=== PATIENT | female | born 1990 | race Caucasian/White ===

== ENCOUNTER 2017-08-07 14:31 | Emergency (ER) | payer OTHER, MEDICAID ==
[~2017-08-07] VITALS: Ht 175.3 cm; Wt 108.9 kg
[~2017-08-07 14:31] MED LIST: ACETAMINOPHEN-1 EAC1 PO; AMOXICILLIN 50500 MG PO; AZITHROMYCIN 2250 MG PO; BACTRIM DS TAB1 EACH PO; BENADRYL25 MG PO; BIRTH CONTROL; CIPRO500 MG PO; CLEOCIN HCL300 MG PO; DICLOFENAC SOD50 M1 PO; DIPHENHIST50 MG PO; EPIPEN 2-P0.3 MG/0.3 IM; FLEXERIL; FLEXERIL PO; HEARTBURN RELIE75 M1 PO; HYDROCODON-ACE1 EAC7 PO; HYDROCODONE-AP1 EAC6 PO; HYDROXYZINE HCL25 M1 PO; IBUPROFEN 800800 M1 PO; IBUPROFEN 800800 MG PO; KEFLEX500 MG PO; LOPRESSOR25 PO; LOPRESSOR50 PO; NOHOMEMEDICATIONS; NORCO 5-325 TA1 EACH PO; ONE-A-DAY WOMENS; PEPCID20 MG PO; PERCOCET 5-3251 EACH PO; PHENERGAN 25 MG25 M1 PO; PREDNISONE 20 M20 M1 PO; PREDNISONE 20 M20 MG PO; PREDNISONE50 MG PO; PRILOSEC40 MG PO; PROMETHAZINE-C120 ML PO; PROVENTIL HFA6.7 G1 INH; ROBAXIN 750 MG750 M1 PO; TOPROL XL25 MG PO; TRAMADOL 50 MG50 MG PO; ULTRACET TABLE1 EACH PO; ULTRAM 50MG TAB50 MG PO; VENTOLIN HFA 1818 GM INH; VICODIN 5-5001 EACH PO; VISTARIL 25 MG25 M1; VISTARIL50 MG PO; ZOFRAN ODT4 MG PO; ZOFRAN4 MG PO; ZPAK PO
[2017-08-07] MEDS ORDERED: TRAMADOL 50 MG50 MG PO (15:39)
[2017-08-07 16:11] VITALS: BP 124/69
== END 2017-08-07 16:12 | disposition home or self-care (01) ==
LOC: M.ERS 14:31
DX: S93.492A Sprain of other ligament of left ankle, initial encounter (principal); J45.909 Unspecified asthma, uncomplicated; G89.29 Other chronic pain; M54.5 Low back pain; F17.210 Nicotine dependence, cigarettes, uncomplicated; Z91.013 Allergy to seafood; Z91.041 Radiographic dye allergy status; W17.2XXA Fall into hole, initial encounter; Y93.89 Activity, other specified; Y92.89 Other specified places as the place of occurrence of the external cause; Y99.8 Other external cause status

== ENCOUNTER 2017-11-03 16:57 | Emergency (ER) | payer OTHER, MEDICAID ==
[~2017-11-03] VITALS: Ht 175.3 cm; Wt 104.3 kg
[2017-11-03] MEDS ORDERED: PROZAC20 MG PO (17:04)
[2017-11-03 17:45] LABS: ABSOLUTE EOSINOPHILS 0.3 thou/uL (0.0-0.7); ABSOLUTE LYMPHOCYTES 2.2 thou/uL (0.8-5.3); ABSOLUTE MONOCYTES 0.6 thou/uL (0.0-1.2); ABSOLUTE NEUTROPHILS 3.8 thou/uL (1.6-8.1); BASOPHILS 0.5 %; EOSINOPHILS 4.5 %; HEMATOCRIT 42.4 % (37.0-47.0); HEMOGLOBIN 14.4 gm/dL (12.0-15.0); MCH 30.4 pg (26.0-34.0); MCV 89.6 fL (80.0-100.0); MONOCYTES 8.5 %; MPV 8.8 fl. (7.2-11.1); NUCLEATED RBCS 0 /100WBC; PLATELET COUNT* 201 thou/uL (150-400); POLYS 54.5 %; RBC 4.73 mil/uL (4.20-5.00); RDW-CV 13.1 % (10.5-14.5)
[2017-11-03 17:54] LABS: CALCIUM 8.9 mg/dL (8.5-10.1); CREATININE 0.8 mg/dL (0.6-1.3)
[2017-11-03 17:59] LABS: ALBUMIN 3.6 g/dL (3.4-5.0); TOTAL BILIRUBIN 0.3 mg/dL (<0.1-1.0); TOTAL PROTEIN 6.8 g/dL (6.4-8.2)
[2017-11-03 18:28] LABS: URINE BILIRUBIN NEGATIVE (Negative); URINE BLOOD 3+ (Negative); URINE CLARITY SL CLOUDY; URINE COLOR RED; URINE GLUCOSE-RANDOM NEGATIVE (Negative); URINE KETONES NEGATIVE (Negative); URINE LEUKOCYTES 1+ (Negative); URINE NITRITE NEGATIVE (Negative); URINE PROTEIN 1+ (Negative); URINE SPECIFIC GRAVITY 1.025 (1.005-1.030); URINE UROBILINOGEN 0.2 E.U./dl (0.2-1.0)
[2017-11-03 18:30] LABS: SQUAMOUS 4-10 Moderate /LPF (0-3)
[2017-11-03 18:31] LABS: URINE WBC 0-5 Rare /HPF (0-5)
[2017-11-03 18:32] LABS: BACTERIA 1-9 Few /HPF (None Seen); CASTS None Seen /LPF (None Seen); CRYSTALS None Seen /LPF (None Seen); MUCUS 4-6 Moderate strn/LPF (None Seen)
[2017-11-03] MEDS ORDERED: ONDANSETRON HCL4 M2 PO (18:49)
[2017-11-03] MEDS ORDERED: TRAMADOL 50 MG50 MG PO (18:49)
[2017-11-03] MEDS ORDERED: IBUPROFEN 800800 M1 PO (18:49)
[2017-11-03] MEDS ORDERED: KEFLEX500 M1 PO (19:01)
[2017-11-03 19:07] VITALS: BP 112/67
== END 2017-11-03 19:08 | disposition home or self-care (01) ==
LOC: M.ERS 16:57
PROVIDERS: Nurse Practitioner Family
DX: K52.9 Noninfective gastroenteritis and colitis, unspecified (principal); N83.201 Unspecified ovarian cyst, right side; N39.0 Urinary tract infection, site not specified; J45.909 Unspecified asthma, uncomplicated; G89.29 Other chronic pain; M54.9 Dorsalgia, unspecified; F17.210 Nicotine dependence, cigarettes, uncomplicated; Z91.013 Allergy to seafood; Z91.041 Radiographic dye allergy status

== ENCOUNTER 2017-12-10 02:08 | Emergency (ER) | payer OTHER, MEDICAID ==
[~2017-12-10] VITALS: Ht 175.3 cm; Wt 103.4 kg
[~2017-12-10 02:08] MED LIST changes: +KEFLEX500 M1 PO; +ONDANSETRON HCL4 M2 PO; +PROZAC20 MG PO
[2017-12-10] MEDS ORDERED: TOPAMAX50 MG PO (02:16)
[2017-12-10] MEDS ORDERED: ATIVAN1 MG PO (02:17)
[2017-12-10] MEDS ORDERED: SEROQUEL 100 M100 M1 PO (02:18)
[2017-12-10 02:40] LABS: ABSOLUTE BASOPHILS 0.1 thou/uL (0.0-0.2); ABSOLUTE EOSINOPHILS 0.2 thou/uL (0.0-0.7); ABSOLUTE LYMPHOCYTES 3.1 thou/uL (0.8-5.3); ABSOLUTE MONOCYTES 0.9 thou/uL (0.0-1.2); BASOPHILS 0.9 %; EOSINOPHILS 2.9 %; HEMATOCRIT 42.6 % (37.0-47.0); HEMOGLOBIN 14.6 gm/dL (12.0-15.0); LYMPHOCYTES 37.1 %; MCH 30.3 pg (26.0-34.0); MCHC 34.2 g/dL (28.0-37.0); MCV 88.7 fL (80.0-100.0); MONOCYTES 10.4 %; MPV 9.7 fl. (7.2-11.1); NUCLEATED RBCS 0 /100WBC; PLATELET COUNT* 178 thou/uL (150-400); POLYS 48.7 %; RDW-CV 12.8 % (10.5-14.5); WBC 8.3 thou/uL (4.0-11.0)
[2017-12-10 02:45] LABS: CALCIUM 9.1 mg/dL (8.5-10.1); CREATININE 0.8 mg/dL (0.6-1.3); POTASSIUM 4.2 mmol/L (3.5-5.1)
[2017-12-10 02:49] LABS: ALBUMIN 3.4 g/dL (3.4-5.0); TOTAL BILIRUBIN 0.6 mg/dL (<0.1-1.0); TOTAL PROTEIN 7.3 g/dL (6.4-8.2)
[2017-12-10 03:25] LABS: URINE BLOOD 3+ (Negative); URINE CLARITY SL CLOUDY; URINE COLOR YELLOW; URINE GLUCOSE-RANDOM NEGATIVE (Negative); URINE KETONES NEGATIVE (Negative); URINE LEUKOCYTES-REFLEX 1+ (Negative); URINE NITRITE-REFLEX NEGATIVE (Negative); URINE PROTEIN 1+ (Negative); URINE SPECIFIC GRAVITY >= 1.030 (1.005-1.030)
[2017-12-10 03:28] LABS: URINE BILIRUBIN 1+ (Negative)
[2017-12-10 03:33] LABS: AMP/METHAMP Negative (Negative); BARBITURATES POSITIVE (Negative); BENZODIAZEPINES Negative (Negative); COCAINE Negative (Negative); METHADONE Negative (Negative); OPIATES Negative (Negative); PCP Negative (Negative); THC Negative (Negative)
[2017-12-10 03:48] LABS: SQUAMOUS >10 Many /LPF (0-3)
[2017-12-10 03:49] LABS: CASTS None Seen /LPF (None Seen)
[2017-12-10 03:50] LABS: BACTERIA-REFLEX >30 Many /HPF (None Seen); CRYSTALS None Seen /LPF (None Seen); URINE RBC >20 Many /HPF (0-2)
[2017-12-10 03:51] LABS: MUCUS >6 Heavy strn/LPF (None Seen)
[2017-12-10] MEDS ORDERED: DOXYCYCLINE 10100 MG PO (04:27)
[2017-12-10] MEDS ORDERED: ACETAMINOPHEN-1 EAC1 PO (04:27)
[2017-12-10 06:26] VITALS: BP 101/57
--- NOTE | 2017-12-10 10:03 | EKG ---
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1990 Requested By: Rosalina Zayas Order Number: [id number] MD: Elias Stern Measurements Intervals [place] Rate: 89 P: 30 CT: 145 QRS: 14 QRSD: 102 T: 251 QT: 372 QTc: 453 Interpretive Statements Sinus rhythm RSR' in V1 or V2, probably normal variant Abnormal T, consider ischemia, diffuse leads Baseline wander in lead(s) I,II,aVR Compared to ECG 10/26/2016 22:15:12 Possible ischemia now present T-wave abnormality still present Electronically Signed On 12-10-2017 10:03:41 CDT by Elias Stern [email or web address] <ELECTRONICALLY SIGNED> By: Elias Stern MD, [facility] 12/10/17 1003 Elias Stern MD, [facility] /EPI
== END 2017-12-10 06:26 | disposition home or self-care (01) ==
LOC: M.ERS 02:08
PROVIDERS: Emergency Medicine
DX: R56.9 Unspecified convulsions (principal); N39.0 Urinary tract infection, site not specified; J45.909 Unspecified asthma, uncomplicated; M54.5 Low back pain; G89.29 Other chronic pain; Z91.041 Radiographic dye allergy status; Z91.013 Allergy to seafood

== ENCOUNTER 2018-02-04 13:57 | Emergency (ER) | payer OTHER, MEDICAID ==
[~2018-02-04] VITALS: Ht 175.3 cm; Wt 97.5 kg
[~2018-02-04 13:57] MED LIST changes: +ATIVAN1 MG PO; +DOXYCYCLINE 10100 MG PO; +SEROQUEL 100 M100 M1 PO; +TOPAMAX50 MG PO
[2018-02-04] MEDS ORDERED: DEPAKOTE 250MG250 M1 PO (14:06)
[2018-02-04] MEDS ORDERED: LEXAPRO 10 MG T10 M2 PO (14:06)
[2018-02-04] MEDS ORDERED: IBUPROFEN 800800 M1 PO (15:21)
[2018-02-04] MEDS ORDERED: NORCO 5-325 TA1 EACH PO (15:21)
[2018-02-04 15:52] VITALS: BP 110/68
== END 2018-02-04 15:55 | disposition home or self-care (01) ==
LOC: M.ERS 13:57
DX: M79.671 Pain in right foot (principal); M25.571 Pain in right ankle and joints of right foot; J45.909 Unspecified asthma, uncomplicated; G89.29 Other chronic pain; M54.5 Low back pain; F17.210 Nicotine dependence, cigarettes, uncomplicated; Z91.041 Radiographic dye allergy status; Z91.013 Allergy to seafood

== ENCOUNTER 2018-03-20 21:39 | Emergency (ER) | payer OTHER, MEDICAID ==
[~2018-03-20] VITALS: Ht 175.3 cm; Wt 99.8 kg
[~2018-03-20 21:39] MED LIST changes: +DEPAKOTE 250MG250 M1 PO; +LEXAPRO 10 MG T10 M2 PO
[2018-03-20] MEDS ORDERED: NORCO 5-325 TA1 EACH PO (22:37)
[2018-03-20 23:03] VITALS: BP 93/50
== END 2018-03-20 23:04 | disposition home or self-care (01) ==
LOC: M.ERS 21:39
DX: S93.491A Sprain of other ligament of right ankle, initial encounter (principal); J45.909 Unspecified asthma, uncomplicated; G89.29 Other chronic pain; M54.5 Low back pain; F17.210 Nicotine dependence, cigarettes, uncomplicated; Z98.890 Other specified postprocedural states; Z91.041 Radiographic dye allergy status; Z91.013 Allergy to seafood; X50.1XXA Overexertion from prolonged static or awkward postures, initial encounter; Y93.89 Activity, other specified; Y92.89 Other specified places as the place of occurrence of the external cause; Y99.8 Other external cause status

== ENCOUNTER 2018-04-28 20:06 | Emergency (ER) | payer OTHER, MEDICAID ==
[~2018-04-28] VITALS: Ht 175.3 cm; Wt 103.0 kg
[2018-04-28] MEDS ORDERED: NORCO 7.5-3251 EACH PO (21:17)
[2018-04-28] MEDS ORDERED: NORCO 5-325 TA1 EACH PO (22:09)
[2018-04-28] MEDS ORDERED: NABUMETONE 750750 M1 PO (22:09)
[2018-04-28] MEDS ORDERED: WHEELCHAIR1 EACH MC (22:11)
[2018-04-28 22:38] VITALS: BP 120/87
== END 2018-04-28 22:40 | disposition home or self-care (01) ==
LOC: M.ERS 20:06
DX: S93.401A Sprain of unspecified ligament of right ankle, initial encounter (principal); S92.002A Unspecified fracture of left calcaneus, initial encounter for closed fracture; W01.0XXA Fall on same level from slipping, tripping and stumbling without subsequent striking against object, initial encounter; Y93.89 Activity, other specified; Y92.89 Other specified places as the place of occurrence of the external cause; Y99.8 Other external cause status

== ENCOUNTER 2018-09-14 18:18 | Emergency (ER) | payer OTHER ==
[~2018-09-14] VITALS: Ht 175.3 cm; Wt 114.8 kg
[~2018-09-14 18:18] MED LIST changes: +NABUMETONE 750750 M1 PO; +NORCO 7.5-3251 EACH PO; +WHEELCHAIR1 EACH MC
[2018-09-14] MEDS ORDERED: NORCO 5-325 TA1 EACH PO (19:11)
[2018-09-14] MEDS ORDERED: IBUPROFEN 800800 MG PO (19:14)
[2018-09-14 19:40] VITALS: BP 108/75
== END 2018-09-14 19:41 | disposition home or self-care (01) ==
LOC: M.ERS 18:18
DX: S93.491A Sprain of other ligament of right ankle, initial encounter (principal); J45.909 Unspecified asthma, uncomplicated; G89.29 Other chronic pain; M54.5 Low back pain; F17.210 Nicotine dependence, cigarettes, uncomplicated; Z98.890 Other specified postprocedural states; Z91.041 Radiographic dye allergy status; Z91.013 Allergy to seafood; X50.1XXA Overexertion from prolonged static or awkward postures, initial encounter; Y93.89 Activity, other specified; Y92.89 Other specified places as the place of occurrence of the external cause; Y99.8 Other external cause status

== ENCOUNTER 2018-10-03 12:00 | Emergency (ER) | payer OTHER ==
[~2018-10-03] VITALS: Ht 175.3 cm; Wt 108.9 kg
[2018-10-03] MEDS ORDERED: PRAZOSIN 1 MG CA1 M1 PO (12:15)
[2018-10-03] MEDS ORDERED: MIRTAZAPINE7.5 MG PO (12:16)
[2018-10-03] MEDS ORDERED: CELEXA20 MG PO (12:16)
[2018-10-03 13:44] LABS: ABSOLUTE EOSINOPHILS 0.2 thou/uL (0.0-0.7); ABSOLUTE LYMPHOCYTES 2.1 thou/uL (0.8-5.3); ABSOLUTE MONOCYTES 0.3 thou/uL (0.0-1.2); ABSOLUTE NEUTROPHILS 3.3 thou/uL (1.6-8.1); BASOPHILS 0.6 %; EOSINOPHILS 2.7 %; HEMATOCRIT 43.3 % (37.0-47.0); HEMOGLOBIN 14.7 gm/dL (12.0-15.0); LYMPHOCYTES 34.8 %; MCH 29.8 pg (26.0-34.0); MCV 87.7 fL (80.0-100.0); MONOCYTES 5.9 %; NUCLEATED RBCS 0 /100WBC; PLATELET COUNT* 211 thou/uL (150-400); RBC 4.93 mil/uL (4.20-5.00); RDW-CV 12.9 % (10.5-14.5); WBC 5.9 thou/uL (4.0-11.0)
[2018-10-03 13:53] LABS: ALBUMIN 3.7 g/dL (3.4-5.0); CALCIUM 9.1 mg/dL (8.5-10.1); CREATININE 0.9 mg/dL (0.6-1.3); POTASSIUM 3.9 mmol/L (3.5-5.1); TOTAL BILIRUBIN 0.2 mg/dL (<0.1-1.0); TOTAL PROTEIN 7.4 g/dL (6.4-8.2)
[2018-10-03] MEDS ORDERED: MIRALAX17 GM PO (14:23)
[2018-10-03] MEDS ORDERED: ANUSOL-HC25 MG RECTAL (14:23)
[2018-10-03 14:48] VITALS: BP 137/77
== END 2018-10-03 14:49 | disposition home or self-care (01) ==
LOC: M.ERS 12:00
PROVIDERS: Nurse Practitioner Psychiatric/Mental Health
DX: K64.4 Residual hemorrhoidal skin tags (principal); K59.00 Constipation, unspecified; F17.210 Nicotine dependence, cigarettes, uncomplicated; Z91.013 Allergy to seafood; Z91.041 Radiographic dye allergy status

== ENCOUNTER 2018-12-06 11:16 | Emergency (ER) | payer OTHER ==
[~2018-12-06] VITALS: Ht 175.3 cm; Wt 111.1 kg
[~2018-12-06 11:16] MED LIST changes: +ANUSOL-HC25 MG RECTAL; +CELEXA20 MG PO; +MIRALAX17 GM PO; +MIRTAZAPINE7.5 MG PO; +PRAZOSIN 1 MG CA1 M1 PO
[2018-12-06] MEDS ORDERED: NORCO 5-325 TA1 EACH PO ×2 (12:29→12:40)
[2018-12-06] MEDS ORDERED: NABUMETONE 750750 M1 PO ×2 (12:29→12:40)
[2018-12-06 12:55] VITALS: BP 125/81
== END 2018-12-06 12:56 | disposition home or self-care (01) ==
LOC: M.ERS 11:16
DX: M25.571 Pain in right ankle and joints of right foot (principal); X50.1XXA Overexertion from prolonged static or awkward postures, initial encounter; Y93.89 Activity, other specified; Y92.89 Other specified places as the place of occurrence of the external cause; Y99.8 Other external cause status; F17.210 Nicotine dependence, cigarettes, uncomplicated; Z91.041 Radiographic dye allergy status; Z91.013 Allergy to seafood

== ENCOUNTER 2019-03-15 11:35 | Emergency (ER) | payer OTHER ==
[~2019-03-15] VITALS: Ht 175.3 cm; Wt 117.9 kg
[2019-03-15] MEDS ORDERED: ACETAMINOPHEN-1 EAC1 PO (12:50)
[2019-03-15 13:12] VITALS: BP 120/82
== END 2019-03-15 13:10 | disposition home or self-care (01) ==
LOC: M.ERS 11:35
DX: S80.02XA Contusion of left knee, initial encounter (principal); M25.511 Pain in right shoulder; R60.0 Localized edema; F17.210 Nicotine dependence, cigarettes, uncomplicated; Z88.1 Allergy status to other antibiotic agents; Z91.041 Radiographic dye allergy status; Z91.013 Allergy to seafood; Z98.51 Tubal ligation status; W10.8XXA Fall (on) (from) other stairs and steps, initial encounter; Y93.89 Activity, other specified; Y92.89 Other specified places as the place of occurrence of the external cause; Y99.8 Other external cause status

== ENCOUNTER 2021-04-11 21:19 | Emergency (ER) | payer OTHER, MEDICAID ==
[~2021-04-11] VITALS: Ht 175.3 cm; Wt 108.9 kg
[2021-04-11] MEDS ORDERED: TIZANIDINE HCL4 M1 PO (21:31)
[2021-04-11] MEDS ORDERED: NEURONTIN100 MG PO (21:32)
[2021-04-11 22:01] VITALS: BP 147/80
[2021-04-11 22:03] LABS: INFLUENZA A ANTIGEN Negative (Negative); INFLUENZA B ANTIGEN Negative (Negative)
[2021-04-11] MEDS ORDERED: PROMETHAZINE-C473 ML PO (22:04)
== END 2021-04-11 22:01 | disposition home or self-care (01) ==
LOC: M.ERS 21:19
PROVIDERS: Personal Emergency Response Attendant
DX: J06.9 Acute upper respiratory infection, unspecified (principal); Z20.822 Contact with and (suspected) exposure to COVID-19; H92.03 Otalgia, bilateral; F17.210 Nicotine dependence, cigarettes, uncomplicated; Z98.51 Tubal ligation status; Z91.013 Allergy to seafood; Z88.1 Allergy status to other antibiotic agents; Z91.041 Radiographic dye allergy status

== ENCOUNTER 2021-04-23 00:28 | Emergency (ER) | payer OTHER, MEDICAID ==
[~2021-04-23] VITALS: Ht 175.3 cm; Wt 108.9 kg
[~2021-04-23 00:28] MED LIST changes: +NEURONTIN100 MG PO; +PROMETHAZINE-C473 ML PO; +TIZANIDINE HCL4 M1 PO
[2021-04-23] MEDS ORDERED: TORADOL 10 MG T10 MG PO (02:28)
[2021-04-23 02:44] VITALS: BP 116/61
== END 2021-04-23 02:44 | disposition home or self-care (01) ==
LOC: M.ERS 00:28
DX: S93.401A Sprain of unspecified ligament of right ankle, initial encounter (principal); S63.501A Unspecified sprain of right wrist, initial encounter; F17.210 Nicotine dependence, cigarettes, uncomplicated; Z98.51 Tubal ligation status; Z79.899 Other long term (current) drug therapy; Z91.013 Allergy to seafood; Z88.1 Allergy status to other antibiotic agents; Z91.041 Radiographic dye allergy status; W01.0XXA Fall on same level from slipping, tripping and stumbling without subsequent striking against object, initial encounter; Y93.89 Activity, other specified; Y92.89 Other specified places as the place of occurrence of the external cause; Y99.8 Other external cause status

== ENCOUNTER 2021-05-18 15:58 | Emergency (ER) | payer OTHER, MEDICAID ==
[~2021-05-18] VITALS: Ht 167.6 cm; Wt 90.7 kg
[~2021-05-18 15:58] MED LIST changes: +TORADOL 10 MG T10 MG PO
[2021-05-18 16:32] VITALS: BP 152/85
== END 2021-05-18 16:32 | disposition home or self-care (01) ==
LOC: M.ERS 15:58
DX: L24.9 Irritant contact dermatitis, unspecified cause (principal); F17.210 Nicotine dependence, cigarettes, uncomplicated; Z98.51 Tubal ligation status; Z79.899 Other long term (current) drug therapy; Z88.1 Allergy status to other antibiotic agents; Z91.02 Food additives allergy status; Z91.013 Allergy to seafood

== ENCOUNTER 2021-05-20 12:43 | Emergency (ER) | payer OTHER, MEDICAID ==
[~2021-05-20] VITALS: Ht 175.3 cm; Wt 108.9 kg
[2021-05-20] MEDS ORDERED: ZANAFLEX4 MG PO (15:06)
[2021-05-20] MEDS ORDERED: IBUPROFEN 800800 M1 PO (15:06)
[2021-05-20] MEDS ORDERED: ATIVAN1 M1 PO ×2 (15:17→15:18)
[2021-05-20 15:33] VITALS: BP 122/72
--- NOTE | 2021-05-20 15:47 | EKG ---
[place] [address] ELECTROCARDIOGRAM REPORT Name: TERESE ESPINOSA Room: 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1990 Requested By: Elvie Wong Order Number: [id number] MD: Clayton Jordan Measurements Intervals [place] Rate: 96 P: 41 RI: 128 QRS: 31 QRSD: 115 T: 2 QT: 358 QTc: 453 Interpretive Statements Sinus rhythm Incomplete right bundle branch block borderline T abnormalities, anterior leads Compared to ECG 12/10/2017 02:43:21 Possible ischemia no longer present T-wave abnormality still present Electronically Signed On 05-20-2021 15:47:23 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
== END 2021-05-20 15:34 | disposition home or self-care (01) ==
LOC: M.ERS 12:43
DX: S16.1XXA Strain of muscle, fascia and tendon at neck level, initial encounter (principal); S20.214A Contusion of middle front wall of thorax, initial encounter; S09.90XA Unspecified injury of head, initial encounter; S63.501A Unspecified sprain of right wrist, initial encounter; F17.210 Nicotine dependence, cigarettes, uncomplicated; Z98.51 Tubal ligation status; Z79.899 Other long term (current) drug therapy; Z91.02 Food additives allergy status; Z91.013 Allergy to seafood; Y08.89XA Assault by other specified means, initial encounter; Y93.89 Activity, other specified; Y92.89 Other specified places as the place of occurrence of the external cause; Y99.8 Other external cause status